=== PATIENT | female | born 1985 | race Hispanic/Latino ===

== ENCOUNTER 2017-01-12 22:59 | Inpatient (IN) | payer MEDICAID ==
[~2017-01-12] VITALS: Ht 147.3 cm; Wt 66.7 kg
[~2017-01-12 22:59] MED LIST: PNV1TABL57 PO; [UNRECOGNIZED DRUG - OTHER]
[2017-01-12] MEDS ORDERED: Lactated Ringer's 1,000 ML IV PRN (23:22)
[2017-01-12] MEDS ORDERED: Carboprost 250 mCg/mL Inj IM PRN (23:25)
[2017-01-12] MEDS ORDERED: Oxytocin 30 Units/500 mL LR 30 UNITS in IV Premix 1 EACH IV PRN (23:25)
[2017-01-12] MEDS ORDERED: Sodium Chloride LOK Flush 10 mL Syringe IVFLUSH PRN (23:25)
[2017-01-12] MEDS ORDERED: Methylergonovine 0.2 mg/mL Inj IM PRN (23:25)
[2017-01-12] MEDS ORDERED: Ondansetron 2 mg/mL 2 mL Inj IVPUSH PRN ×2 (23:25→23:35)
[2017-01-12] MEDS ORDERED: fentaNYL-PF 50 mCg/mL 2 mL Inj IVPUSH PRN (23:25)
[2017-01-12] MEDS ORDERED: Hemorrhage Kit, Post Partum XX ONE (23:25)
[2017-01-12] MEDS ORDERED: Oxytocin 10 Unit/mL Inj IM PRN (23:25)
[2017-01-12] MEDS ORDERED: Lactated Ringer's 500 ML IV ONE (23:31)
[2017-01-12] MEDS ORDERED: Lactated Ringer's 1,000 ML IV SCH (23:31)
[2017-01-12] MEDS ORDERED: EPHEDrine Sulfate 50 mg/mL Inj IVPUSH PRN (23:35)
[2017-01-12] MEDS ORDERED: Atropine 1 mg/10 mL (Code) Syringe IVPUSH PRN (23:35)
[2017-01-12] MEDS ORDERED: fentaNYL 2 mCg/mL-Bupiv 0.125% 100 ML EPIDURAL SCH (23:35)
[2017-01-12 23:58] LABS: Mean Corpuscular Hemoglobin 29.5 pg (27.0-35.0); Mean Corpuscular Volume 87.8 fL (81-100)
[2017-01-13] MEDS ORDERED: Sodium Chloride LOK Flush 10 mL Syringe IVFLUSH SCH (00:30)
[2017-01-13] MEDS ORDERED: Lactated Ringer's 1,000 ML IV SCH (00:32)
[2017-01-13] MEDS ORDERED: Methylergonovine 0.2 mg/mL Inj IM PRN (00:35)
[2017-01-13] MEDS ORDERED: Witch Hazel-Glycerin Pads TOPICAL PRN (00:35)
[2017-01-13] MEDS ORDERED: Benzocaine (Dermoplast) 20% 60 Gm Spray TOPICAL PRN (00:35)
[2017-01-13] MEDS ORDERED: LANOlin HPA 7 Gm Ointment TOPICAL PRN (00:35)
[2017-01-13] MEDS ORDERED: Hemorrhage Kit, Post Partum XX ONE (00:35)
[2017-01-13] MEDS ORDERED: Oxytocin 30 Units/500 mL LR 30 UNITS in IV Premix 1 EACH IV PRN (00:35)
[2017-01-13] MEDS ORDERED: Carboprost 250 mCg/mL Inj IM PRN (00:35)
[2017-01-13] MEDS ORDERED: oxyCODONE-Acetamin 5-325 mg Tablet PO PRN (00:35)
[2017-01-13] MEDS ORDERED: Oxytocin 10 Unit/mL Inj IM PRN (00:35)
--- NOTE | 2017-01-13 00:44 | HP ---
[address] [address] HISTORY AND PHYSICAL PATIENT: ANGELINE TOTH : 1985 MR#: [id number] ADMIT: 01/12/2017 JOB ID: [id number] CHIEF COMPLAINT: Contractions. HISTORY OF PRESENT ILLNESS: This is a 32-year-old, -0-0-3 female, presenting at 38+4 weeks gestational age with an EDC of January 22, 2017, complaining of regular uterine contractions. Her was complicated by gestational diabetes mellitus A2, controlled with metformin, as well as Trichomonas diagnosed in the . She also had a history of preeclampsia in a previous . She presented complaining of uterine contractions, and was noted to be 7 cm dilated. PAST MEDICAL HISTORY: None. PAST SURGICAL HISTORY: None. OBSTETRICAL HISTORY: She has had three previous full-term vaginal deliveries. Her 1st was complicated by preeclampsia. Her last was complicated by gestational diabetes, and this was also complicated by gestational diabetes. Her largest was 6 pounds, per her report. SOCIAL HISTORY: No tobacco, alcohol, or drug use. MEDICATIONS: vitamins. ALLERGIES: No known drug allergies. PHYSICAL EXAMINATION: Blood pressure at the time of admission was 160-170s/100s, as the patient was in acute pain. She rapidly delivered and following this, her blood pressure decreased to 137/89, heart rate is 90, respiratory rate is 18, and temperature is 36.7. In general, she is awake, alert, oriented. She is very uncomfortable with contractions. Her abdomen is gravid, with EFW of approximately 7 pounds. Her extremities show no tenderness or edema. Cervical exam - 10 cm dilated, +1 station, with a bulging bag of water. heart tones show 145 baseline, moderate variability, with deep variable decelerations with contractions. Willey, she is patricia every 2-5 minutes. LABORATORY DATA: Shows a blood type of O positive, antibody screen negative, rubella immune, hep B surface antigen negative, RPR nonreactive, HIV negative. She has Trichomonas diagnosed in . ASSESSMENT: 1. This is a 32-year-old, 4 para 3-0-0-3 female, presenting at 38+4 weeks gestational age with an estimated date of confinement of January 22, 2017, in active labor, who progressed to complete shortly after admission. 2. Gestational diabetes mellitus A2, currently controlled on metformin. Will plan to discontinue blood sugars . Recommend six week blood sugar checks. 3. Elevated blood pressure at the time of admission, suspected due to pain. Her blood pressure rapidly improved to normal after delivery. We will continue to monitor these. A CBC and CMP are currently pending, and if her blood pressures remain elevated in the severe range, magnesium can be considered. However, my suspicion is these were acute elevations due to pain. PLAN: At this point in time, will continue expectant management as upon my evaluation, she is 10 cm dilated. Artificial rupture of membranes was completed at the bedside with return of meconium-stained amniotic fluid and she quickly went on to deliver. She is GBS negative. Due to the rapid progress of her labor, an epidural was not placed. She is O positive. Rubella immune. No vaccinations are indicated.
--- NOTE | 2017-01-13 00:54 | OP ---
[address] [address] OPERATIVE REPORT PATIENT: ANGELINE TOTH : 1985 MR#: [id number] ADMIT: 01/12/2017 JOB ID: [id number] DATE OF SURGERY: 01/12/2017 PREOPERATIVE DIAGNOSIS(ES): 1. A 38 week intrauterine , in active labor. 2. Gestational diabetes mellitus, type 2, controlled on metformin. 3. History of Trichomonas diagnosed and treated in the . 4. History of preeclampsia with her first delivery. POSTOPERATIVE DIAGNOSIS(ES): 1. A 38 week intrauterine , in active labor. 2. Gestational diabetes mellitus, type 2, controlled on metformin. 3. History of Trichomonas diagnosed and treated in the . 4. History of preeclampsia with her first delivery. PROCEDURE PERFORMED: Spontaneous vaginal delivery of a liveborn male infant, born on January 13, 2017 at 2356 hours, weighing 7 pounds with Apgars of 9 at one minute and 9 at five minutes. COMPLICATIONS: None apparent. FINDINGS: Liveborn male with spontaneous cry and spontaneous movement of all four extremities. SURGEON: Pushpa Castro MD. ANESTHESIA: Local for perineal laceration repair. ESTIMATED BLOOD LOSS: 300 cc. INDICATIONS: This is a 32-year-old G-4, P-3-0-0-3 female who presented to Labor and Delivery on the evening of January 13 complaining of regular uterine contractions. Her EDC was January 22, 2017 and she is approximately 38 plus 4 weeks gestational age at the time of admission. She was patricia frequently and checked and noted to be 7 cm dilated. was complicated by GDMa2 (well controlled with metformin), as well as a history of preeclampsia in a previous and Trichomonas diagnosed in this . She was admitted an and epidural was requested. However, she rapidly progressed to complete shortly after admission, so artificial rupture of membranes was completed at the bedside, which revealed a small amount of meconium-stained amniotic fluid. It was at this point that she began to push, bringing the infant's vertex to the perineum. PROCEDURE IN DETAIL: The patient was noted to be complete and pushing. She was placed in the dorsal lithotomy position, prepped and draped in the usual sterile fashion for delivery. She pushed and the head delivered spontaneously in the ANDREW position over an intact perineum. Nuchal cord was checked for and none was noted. The anterior shoulder delivered easily, followed by the posterior shoulder. The remainder of the was then easily delivered. After a 60-second cord clamping delay, the cord was then clamped and cut. The was placed on the mother's abdomen. Cord blood was then obtained. The placenta delivered intact spontaneously after Pitocin was started for active management of the third stage of labor. Examination of the perineum showed a first-degree midline perineal laceration which was repaired with a single [id number] stitch of 4-0 Vicryl after injection with local anesthetic, as well as a right periclitoral laceration which was repaired with a running nonlocking stitch of 4-0 Vicryl. The patient tolerated this procedure well, recovered in labor and delivery with her infant. All sponge, needle and instrument counts were correct.
[2017-01-13] MEDS ORDERED: hydrALAZINE 20 mg/mL Inj IV PRN (01:00)
[2017-01-13] MEDS: Ascorbic Acid 500 mg Tablet PO SCH ×2 (08:48→17:51)
--- NOTE | 2017-01-13 19:00 | PROG NOTE ---
[address] [address] PROGRESS NOTE PATIENT: ANGELINE TOTH : 1985 MR#: [id number] ADMIT: 01/12/2017 JOB ID: [id number] DATE: 01/13/2017 Patient is doing well today. Her preeclampsia labs on admission were within normal limits. OBJECTIVE: Vital signs: 126/85 for blood pressure. Respirations are 16. Pulse is 74, temperature 36.2 degrees centigrade. Heart is regular rate and rhythm. Positive S1, S2. Lungs clear to auscultation bilaterally. Abdomen firm. Uterine fundus palpated at 1 cm below the umbilicus. Nontender. Positive bowel sounds. Nondistended abdomen. Perineum: No active bleeding. Lower extremities: No calf tenderness appreciated bilaterally. Fasting blood glucose at 8:15 a.m. was 75. This was the only value checked today. ASSESSMENT AND PLAN: Patient is day number one, status post spontaneous vaginal delivery at around midnight, history of gestational diabetes, A2. Was on metformin 1000/500/500 antepartum. 1. Decrease metformin dose to 500 mg with breakfast, 250 mg with dinner of metformin. stop lunch dose. 2. Will continue evaluating fasting and one-hour postprandial blood glucose levels. 3. Check CBC at a.m. to evaluate for anemia. 4. Continue with care. All the above discussed in details with the patient, who agreed to the plan. PIPO
[2017-01-14 06:34] LABS: Mean Corpuscular Hemoglobin 29.7 pg (27.0-35.0); Mean Corpuscular Volume 88.8 fL (81-100)
[2017-01-14 07:12] LABS: BASOPHILS % (AUTO) 0.3 % (0-3); EOSINOPHILS % (AUTO) 1.1 % (0-5); MONOCYTES % (AUTO) 9.1 % (4-12); NEUTROPHILS % (AUTO) 68.1 % (40-74)
[2017-01-14] MEDS: Ascorbic Acid 500 mg Tablet PO SCH (08:06)
--- NOTE | 2017-01-14 13:07 | PCM.DIOB ---
Obstetrical Disch Instruction Date of Service: Jan 14, 2017 Dates of Hospitalization Date of Hospital Admission Jan 12, 2017 at 23:16 Providers Admitting Physician: Pushpa Castro MD Primary Care Physician: Rozina Palomares MD Attending Physician: Pushpa Castro MD Discharge Diagnosis Discharge Diagnosis PPD#2 S/P , GDM-A2, Anemia Problems: Diet Discharge Diet: No restrictions Activity Discharge Activity-General: Pelvic Rest for 6 weeks, No lifting >10 pounds for 4-6 weeks Dressing and Incisional Care Hygiene: May shower Additional Instructions Discharge Instructions check your blood glucose fasting and 1 hour after each meal, bring the log to your office appointment. Follow Up Plan Follow-up Provider (F9): Rozina Palomares MD Follow-up appointment: Weeks (2) Call your provider for: Fever or Chills, Shortness of breath, Heavy vaginal bleeding, Other (excessive pain not controlled with pain medications.) Rozina Palomares MD Jan 14, 2017 13:07
[2017-01-14] MEDS ORDERED: Ascorbic Acid PO (13:13)
[2017-01-14] MEDS ORDERED: METF500T4 PO ×2 (13:13)
[2017-01-14] MEDS ORDERED: IBUP-1827 PO (13:13)
[2017-01-14] MEDS ORDERED: FERR-74 PO (13:13)
[2017-01-14] MEDS ORDERED: DOCU-41 PO (13:13)
[2017-01-14 13:38] VITALS: BP 99/63; PULSE 88; RESP 16
--- NOTE | 2017-01-14 21:09 | DIS ---
[address] [address] DISCHARGE SUMMARY PATIENT: ANGELINE TOTH : 1985 MR#: [id number] ADMIT: 01/12/2017 JOB ID: [id number] DIS: 01/14/2017 DISCHARGE DIAGNOSES: 1. day number two status post spontaneous vaginal delivery. 2. Gestation diabetes, A2. 3. Anemia. For further details, please refer to the fully dictated notes. On the day of discharge, the patient had no complaints, voiding, ambulating, tolerating p.o. intake, breast and bottle-feeding. OBJECTIVE: Vital signs are 99/62 for blood pressure, respirations are 16, pulse is 88, temperature 36.6 degrees centigrade. Fingerstick blood glucose levels are as the followin one hour postprandial dinner last night. 71 fasting at 7:45 a.m. this morning. 113 at 1 hour postprandial after breakfast. The patient is currently on her metformin dose that was 1000/500/500, is dropped to 500 with breakfast and 250 mg with dinner. H and H this morning is 10.9 and 32.6. Platelets 159. White blood count 7.4. Mild anemia. Heart is regular rate and rhythm. Positive S1, S2. Lungs clear to auscultation bilaterally. Abdomen firm. Uterine fundus palpated at 1 cm below the umbilicus. Nontender. Positive bowel sounds. Nondistended abdomen. Perineum: No active bleeding. Lower extremities: No calf tenderness appreciated bilaterally. DISCHARGE PLAN: Patient will be discharged home in a stable condition. Will follow up with Dr. Palomares in the office in two weeks. Instructed to have nothing in the vagina for six weeks. No heavy lifting more than baby's weight. Instructed to call for fever, chills, severe abdominal pain not controlled with medication, heavy vaginal bleeding, or any other concerning symptoms. She is going to check her fasting blood sugar and 1 hour postprandial for each meal. She is going to bring the log to her follow-up appointment in two weeks with Dr. Palomares. DISCHARGE MEDICATIONS: 1. Ibuprofen 600 mg every 6 hours as needed. 2. Ferrous sulfate 325 mg b.i.d. 3. Vitamin C 500 mg b.i.d. 4. Colace 100 mg twice daily. 5. Metformin 500 mg tablets with breakfast, 250 mg tablet with dinner. Patient instructed to continue with vitamins as well. The patient understood the discharge instructions. She will comply with her discharge plan. PIPO
== END 2017-01-14 16:14 | disposition home or self-care (01) | DRG 775 ==
LOC: FBCO 22:59 → FBC 23:16
PROVIDERS: ADMIT Obstetrics & Gynecology; ATTEND Obstetrics & Gynecology
PROC: 10E0XZZ Delivery of Products of Conception, External Approach (ICD-10-PCS; principal; 2017-01-12)
PROC: 10907ZC Drainage of Amniotic Fluid, Therapeutic from Products of Conception, Via Natural or Artificial Opening (ICD-10-PCS; 2017-01-12)
PROC: 0HQ9XZZ Repair Perineum Skin, External Approach (ICD-10-PCS; 2017-01-12)
DX: O24.420 Gestational diabetes mellitus in childbirth, diet controlled (principal); D64.9 Anemia, unspecified; Z3A.39 39 weeks gestation of pregnancy; Z37.0 Single live birth; O70.0 First degree perineal laceration during delivery; O90.81 Anemia of the puerperium